=== PATIENT | male | born 1985 | race Caucasian/White ===

== ENCOUNTER 2017-10-28 16:10 | Emergency (ER) | payer SELFPAY ==
[~2017-10-28] VITALS: Ht 182.9 cm; Wt 86.0 kg
[2017-10-28 16:11] VITALS: BP 129/73; PULSE 91; RESP 16; TEMP 98.8; O2SAT 96
[2017-10-28] MEDS ORDERED: PERC10TA27 PO (21:22)
--- NOTE | 2017-10-28 21:22 | PD ---
HPI Chief Complaint: GI Complaint Time Seen by Provider: 20:53 Travel History International Travel<30 days: No Contact w/Intl Traveler<30days: No Traveled to known affect area: No History of Present Illness HPI 32-year-old male here for evaluation of painful hemorrhoids. The patient reports that he had a back injury when he was younger and was on opiates for several years leading to constipation, followed by hemorrhoids. He states that recently his hemorrhoids have become more painful. He reports that he was seen by colorectal surgeon Dr. Juarez yesterday who anesthetized him in the office for an exam and stated that he needed a surgical procedure. This was to be scheduled for next week, however the patient called his office again today complaining of severe rectal pain. His office staff advised that he should present to the emergency department for evaluation. No abdominal pain. Pain is moderate to severe. He is having intermittent rectal bleeding. He was prescribed cream by Dr. Juarez yesterday. Denies history of alcohol abuse. PFSH Social History Tobacco Use: No Allergies-Medications (Allergen,Severity, Reaction): Coded Allergies: No Known Allergies (Unverified , 10/28/17) Reported Meds & Prescriptions Reported Meds & Active Scripts Active Percocet (Oxycodone-Acetaminophen) 10-325 mg Tab 1 Tab PO Q6H PRN Review of Systems Except as stated in HPI: all other systems reviewed are Neg Physical Exam Narrative GENERAL: Well-developed, well-nourished, comfortable, no apparent distress. SKIN: Focused skin assessment warm/dry. HEAD: Atraumatic. Normocephalic. EYES: Pupils equal and round. No scleral icterus. No injection or drainage. ENT: No nasal bleeding or discharge. Mucous membranes pink and moist. CARDIOVASCULAR: Regular rate and rhythm. No murmur appreciated. RESPIRATORY: No accessory muscle use. Clear to auscultation. Breath sounds equal bilaterally. GASTROINTESTINAL: Abdomen soft, non-tender, nondistended. RECTUM: No masses, no fissures, no external hemorrhoids, no bleeding. MUSCULOSKELETAL: No obvious deformities. No clubbing. No cyanosis. No edema. NEUROLOGICAL: Awake and alert. No obvious cranial nerve deficits. Motor grossly within normal limits. Normal speech. PSYCHIATRIC: Appropriate mood and affect; insight and judgment normal. Data Data Last Documented VS Vital Signs Date Time Temp Pulse Resp B/P (MAP) Pulse Ox O2 Delivery O2 Flow Rate FiO2 10/28/17 16:11 98.8 91 16 129/73 (91) 96 Room Air Orders Orders Ed Discharge Order (10/28/17 21:22) MDM Medical Decision Making Medical Screen Exam Complete: Yes Emergency Medical Condition: Yes Differential Diagnosis Hemorrhoids. Narrative Course Vital signs reviewed and are within normal limits. Case discussed with colorectal surgeon Dr. Juarez who states that the patient requires an outpatient procedure for his hemorrhoids. The patient is overall comfortable. There is no active bleeding. No visible external hemorrhoids or masses. Abdominal exam is benign. He can be discharged home to follow-up in Dr. Juarez's office tomorrow. Patient will be started on Percocet and advised to keep his stool loose with [id number] stool softeners/fiber diet. Sits baths. He was advised on when to return to the emergency department. Diagnosis Primary Impression: Rectal pain Additional Impression: Hemorrhoids Qualified Codes: K64.9 - Unspecified hemorrhoids Referrals: Daryn Juarez MD 1 day Additional Instructions: Follow-up with Dr. Juarez tomorrow. Return to the emergency department for worsening symptoms or any other concerns. Scripts Oxycodone-Acetaminophen (Percocet) 10-325 mg Tab 1 TAB PO Q6H Y for PAIN, #10 TAB 0 Refills Prov: Reji Ramon MD 10/28/17 Disposition: 01 DISCHARGE HOME Condition: Stable Reji Ramon MD Oct 28, 2017 21:22
== END 2017-10-28 21:48 | disposition home or self-care (01) ==
LOC: NEPD 16:10
DX: K62.89 Other specified diseases of anus and rectum (principal); K64.9 Unspecified hemorrhoids
CPT/HCPCS: 99283